=== PATIENT | male | born 1970 | race Caucasian/White ===

== ENCOUNTER 2021-01-10 12:10 | Outpatient (CLI) | payer BC, SELFPAY ==
[2021-01-10 12:30] VITALS: BP 131/84; PULSE 97; RESP 18; TEMP 36.6; O2SAT 97; BMI 34.4
[2021-01-10 13:00] VITALS: BP 117/78; PULSE 71; RESP 16; TEMP 36.7; O2SAT 94
[2021-01-10 13:56] VITALS: BP 120/81; PULSE 75; RESP 18; TEMP 36.7; O2SAT 94
== END 2021-01-10 13:57 | disposition home or self-care (01) ==
LOC: OPS 12:12
PROVIDERS: PCP Nurse Practitioner Family; Visit Provider Nurse Practitioner Family
DX: U07.1 COVID-19 (principal)
CPT/HCPCS: 96365